=== PATIENT | female | born 2000 | race Caucasian/White ===

== ENCOUNTER 2021-10-28 11:19 | Outpatient (CLI) | payer BC ==
[2021-10-28 12:59] VITALS: BP 127/78; PULSE 110; RESP 16; TEMP 97.2
--- NOTE | 2021-12-22 21:54 | P.MSEPDOC ---
Presenting Problems - Arrival Data Date of Arrival on Unit: 10/28/21 Time of Arrival on Unit: 11:19 Mode of Transport: Ambulatory - Complaint OB-Reason for Admission/Chief Complaint: Possible Onset of Labor Comment: Contrx since 199 Medical History - Information : 1 Para: 0 - Gestational Age Gestational Age by RAJAT (wks/days): 39 Weeks and 5 Days Review of Systems - Review of Systems Constitutional: No problems Breast: No problems ENT: No problems Cardiovascular: No problems Respiratory: No problems Gastrointestinal: No problems Genitourinary: No problems Musculoskeletal: No problems Neurological: No problems Skin: No problems Vital Signs - Temperature Temperature: 97.2 F Temperature Source: Temporal Artery Scan - Pulse Right Sitting Brachial Pulse Rate: 110 Pulse Assessment Method: Automatic Cuff - Respirations Respiratory Rate: 16 Oxygen Delivery Method: Room Air O2 Sat by Pulse Oximetry: 99 - Blood Pressure Right Arm Sitting Blood Pressure: 127/78 Blood Pressure Mean: 94 Blood Pressure Source: Automatic Cuff Medical Screen Scoring - Cervical Exam Dilation (cm): 1 Effacement (%): 90 Station: -2 Membranes: Intact - Uterine Contractions Frequency From (mins): 1 Frequency To (mins): 5 Duration From (seconds): 40 Duration To (seconds): 60 Intensity: Moderate Resting: Soft to palpation - Assessment - Baby A Baseline FHR: 130 Heart Rate - NICHD Category: Category I (Normal) NST: Reactive Physician Notification - Physician Notified Physician Notified Date: 10/28/21 Physician Notified Time: 12:45 Physician: Kira Santos New Order Received: Yes - Notification Comment Comment: Spk c\Dr. Santos, advsd , 39 57, contrx since 199, /-2, posterior. No. change after 1 hr. Contrx q1-5min. Reactive NST. Pt requesting discharge and return when. contractions are more intense. Dr. Santos states pt may be d/c c\instructions. Maternal Triage Index - Maternal Triage Index Presenting for scheduled procedure w/no complaint: No - Stat/Priority 1 Stat Priority 1: No - Urgent/Priority 2 Urgent Priority 2: No - Prompt/Priority 3 Prompt Priority 3: No - Non-Urgent/Priority 4 Non-Urgent Priority 4: Yes Criteria Met for Priority 4: Early labor Disposition - Disposition OB Disposition: Discharge to home, Written follow up instructions reviewed Discharge Date: 10/28/21 Discharge Time: 12:55 I agree with the RN Medical Screening Exam: Yes Case reviewed; plan agreed upon as documented in EMR&OBIX.: Yes Diagnosis: FALSE LABOR AT OR AFTER 37 COMPLETED WEEKS OF GESTATION
== END 2021-10-28 12:55 | disposition home or self-care (01) ==
LOC: FBPOP 11:19
PROVIDERS: ATTEND Obstetrics & Gynecology Obstetrics
DX: O47.1 False labor at or after 37 completed weeks of gestation (principal); Z3A.39 39 weeks gestation of pregnancy
CPT/HCPCS: 59025; 99213

== ENCOUNTER 2021-10-29 06:49 | Outpatient (CLI) | payer BC ==
[2021-10-29 07:55] VITALS: BP 122/83; PULSE 86; RESP 16; TEMP 97.2
--- NOTE | 2021-12-22 21:55 | P.MSEPDOC ---
Presenting Problems - Arrival Data Date of Arrival on Unit: 10/29/21 Time of Arrival on Unit: 06:45 Mode of Transport: Ambulatory - Complaint OB-Reason for Admission/Chief Complaint: Rule Out SROM Medical History - Information : 1 Para: 0 Term: 0 : 0 Abortions: Spontaneous or Elective: 0 Number of Living Children: 0 - Gestational Age Gestational Age by RAJAT (wks/days): 39 Weeks and 6 Days Review of Systems - Review of Systems Constitutional: No problems Breast: No problems ENT: No problems Cardiovascular: No problems Respiratory: No problems Gastrointestinal: No problems Genitourinary: No problems Musculoskeletal: No problems Neurological: No problems Skin: No problems Vital Signs - Temperature Temperature: 97.2 F Temperature Source: Temporal Artery Scan - Pulse Right Apical Pulse Rate: 86 Pulse Assessment Method: Automatic Cuff - Respirations Respiratory Rate: 16 Oxygen Delivery Method: Room Air - Blood Pressure Right Arm Blood Pressure: 122/83 Blood Pressure Mean: 96 Blood Pressure Source: Automatic Cuff Medical Screen Scoring - Cervical Exam Dilation (cm): 1 Effacement (%): 90 Station: -2 Membranes: Intact - Uterine Contractions Intensity: Mild Resting: Soft to palpation - Assessment - Baby A Baseline FHR: 120 Heart Rate - NICHD Category: Category I (Normal) Physician Notification - Physician Notified Physician Notified Date: 10/29/21 Physician Notified Time: 07:40 Physician: Kira Santos New Order Received: Yes - Notification Comment Comment: home with instryctions Maternal Triage Index - Scheduled/Requesting Priority 5 Scheduled/Requesting Priority 5: Yes Criteria Met for Priority 5: contx every 10 minutes. neg amnisure. 1cm dilated Disposition - Disposition OB Disposition: Discharge to home, Written follow up instructions reviewed Discharge Date: 10/29/21 Discharge Time: 07:40 I agree with the RN Medical Screening Exam: Yes Case reviewed; plan agreed upon as documented in EMR&OBIX.: Yes Diagnosis: FALSE LABOR AT OR AFTER 37 COMPLETED WEEKS OF GESTATION
== END 2021-10-29 07:40 | disposition home or self-care (01) ==
LOC: FBPOP 06:49
PROVIDERS: ATTEND Obstetrics & Gynecology Obstetrics
DX: O47.1 False labor at or after 37 completed weeks of gestation (principal); Z3A.39 39 weeks gestation of pregnancy
CPT/HCPCS: 59025; 99213

== ENCOUNTER 2021-10-31 09:29 | Inpatient (IN) | payer BC ==
--- NOTE | 2021-10-31 10:22 | P.HPOB ---
History of Present Illness H&P Date: 10/31/21 Chief Complaint: Strong regular uterine contractions This is a 21-year-old white female 1 para 0 EDC 219 2240 and one sevenths weeks' gestation. Patient presents with complaint of strong regular uterine contractions. Fetus is been active throughout the . She denies vaginal bleeding or fluid leakage. Past medical history is negative. Past surgical history adenoidectomy and tonsillectomy in the first grade. Current medications vitamins daily. ALLERGIES none known. Family history significant for diabetes. Social history patient is single, father of the baby is involved. 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 history significant for blood type B positive, rubella status immune. VDRL testing, urine culture, hepatitis B surface antigen, HIV testing, gonorrhea and chlamydia cultures all negative. Positive group B strep cultures noted. On exam patient is 5 foot 5 inches, 150 pounds, vital signs are stable and she is afebrile. The general physical exam is within normal limits. Cervix is 6 cm dilated, 100% effaced, -2 station, vertex presentation. heart rate is consistent with reactive NST. Impression: 40 and one sevenths weeks intrauterine , early spontaneous labor. Positive group B strep cultures noted. Plan: Penicillin G prophylaxis per protocol. Close maternal and surveillance. I will proceed with artificial amniorrhexis. Analgesic options have been reviewed. Anticipate normal spontaneous vaginal delivery. Review of Systems Constitutional: Reports as per HPI Past Medical History Past Medical History: No Reported History History of Any Multi-Drug Resistant Organisms: None Reported Past Surgical History: Tonsillectomy Past Psychological History: No Psychological Hx Reported Smoking Status: Never smoker Past Alcohol Use History: Unable to Obtain Past Drug Use History: None Reported - Past Family History Mother History Unknown: Yes Medications and Allergies Home Medications Medication Instructions Recorded Confirmed Type Pnv No.95/Ferrous Fum/Folic AC 1 each PO DAILY 10/29/21 10/31/21 History [ Multivitamin Tablet] Allergies Allergy/AdvReac Type Severity Reaction Status Date / Time No Known Allergies Allergy Verified 10/29/21 06:57 Exam Vital Signs Temp Pulse Resp BP Pulse Ox 10/31/21 09:49 97.5 F L 78 18 131/80 100 Intake and Output 10/30/21 10/31/21 10/31/21 22:59 06:59 14:59 Other: Weight 74.843 kg See dictation under HPI please Assessment and Plan Assessment: 40 and one sevenths weeks intrauterine , active spontaneous labor. All signs reassuring. Positive group B strep cultures noted. Plan: Close maternal and surveillance. Penicillin G per hospital protocol. Analgesic options reviewed. Oxytocin if indicated clinically. Anticipate normal spontaneous vaginal delivery. Time with Patient: Less than 30
[2021-10-31] MEDS ORDERED: CARBOPROST TROMETHAMINE 250 MCG/ML 1 ML AMP IM PRN (10:24)
[2021-10-31] MEDS ORDERED: LIDOCAINE 1% (PF) 10 MG/ML (30 ML SDV) SQ PRN (10:24)
[2021-10-31] MEDS ORDERED: OXYTOCIN 10 UNIT/ML 1 ML VIAL IM PRN (10:24)
[2021-10-31] MEDS ORDERED: PENICILLIN G POTASSIUM 5,000,000 UNIT in DEXTROSE 5% IN WATER 100 ML IVPB STA ×2 (10:24)
[2021-10-31] MEDS ORDERED: TERBUTALINE 1 MG/ML VIAL SQ PRN (10:24)
[2021-10-31] MEDS ORDERED: METHYLERGONOVINE 0.2 MG/ML 1 ML AMP IM PRN (10:24)
[2021-10-31 10:36] LABS: Basophils % (A) 0 %; Eosinophils # (A) 0.1 k/uL (0-0.7); Eosinophils % (A) 1 %; HCT 34.9 % (34.0-46.0); HGB 11.6 gm/dL (11.4-16.0); Lymphocytes # (A) 1.6 k/uL (1.0-4.8); Lymphocytes % (A) 16 %; MCH 27.9 pg (25.0-35.0); MCHC 33.3 g/dL (31.0-37.0); MCV 83.6 fL (80.0-100.0); Mean Platelet Volume 7.6; Monocytes # (A) 0.5 k/uL (0-1.0); Monocytes % (A) 5 %; Neutrophils # (A) 7.8 k/uL (1.3-7.7); Neutrophils % (A) 77 %; Platelet Count 277 k/uL (150-450); RBC 4.17 m/uL (3.80-5.40); RDW 13.5 % (11.5-15.5); WBC 10.1 k/uL (3.8-10.6)
[2021-10-31] MEDS: LACTATED RINGERS 1,000 ML IV SCH ×2 (10:44→11:21)
[2021-10-31] MEDS ORDERED: fentaNYL (PF) 50 MCG/ML 5 ML AMP ONE (10:58)
[2021-10-31] MEDS ORDERED: SODIUM CHLORIDE 0.9% 100 ML BAG ONE (10:58)
[2021-10-31] MEDS ORDERED: ROPIVACAINE 5MG/ML 20ML VIAL ONE (10:58)
[2021-10-31] MEDS: OXYTOCIN 30 UNITS/500 ML NS 30 UNIT in SALINE 1 500ML.BAG IV SCH ×2 (11:47→15:30)
[2021-10-31] MEDS ORDERED: PENICILLIN G POTASSIUM 2,500,000 UNIT in DEXTROSE 5% IN WATER 100 ML IVPB SCH ×2 (15:00)
[2021-10-31] MEDS ORDERED: diphenhydrAMINE 50 MG CAP PO PRN (15:19)
[2021-10-31] MEDS ORDERED: LANOLIN CREAM 5 GM TUBE TOPICAL PRN (15:19)
[2021-10-31] MEDS ORDERED: diphenhydrAMINE ELIXIR 25 MG/10 ML CUP PO PRN (15:19)
[2021-10-31] MEDS ORDERED: HYDROCORTISONE 2.5% RECTAL CREAM 30 GM TUBE RECTAL PRN (15:19)
[2021-10-31] MEDS ORDERED: diphenhydrAMINE 50 MG/ML 1 ML VIAL IVP PRN ×2 (15:19)
[2021-10-31] MEDS ORDERED: BENZOCAINE/MENTHOL SPRAY 1 GM/SPRAY AEROSOL TOPICAL PRN (15:19)
[2021-10-31] MEDS ORDERED: diphenhydrAMINE 25 MG CAP PO PRN (15:19)
[2021-10-31] MEDS ORDERED: ZOLPIDEM 5 MG TAB PO PRN (15:19)
[2021-10-31] MEDS ORDERED: SIMETHICONE 80 MG CHEWABLE PO PRN (15:19)
--- NOTE | 2021-10-31 15:20 | P.PROBDLV ---
Vaginal Delivery Note - . Vaginal Delivery Note: This is a 21-year-old white female 1 para 0 EDC 10/30/2021 at 40 and one sevenths weeks' gestation who presented in active spontaneous labor. remarkable for positive group B strep cultures, rubella status immune, blood type B positive. Please see dictated history and physical for details. Artificial amniorrhexis revealed clear fluid. Penicillin G was given 2 units per protocol. Oxytocin augmentation was started and titrated. Epidural was arthur sabrina per her request. She progressed through the first stage of labor and became completely dilated at 1414 hrs. and began the second stage of labor at that time. Excellent maternal expulsive efforts were noted. Ultimately the perineal body was prepped and draped in usual sterile fashion. Infant's head delivered occiput anterior and he restituted accordingly. There was no nuchal cord noted. The left or anterior shoulder was delivered from underneath the pubic symphysis at which time the oropharynx, nasopharynx and external nares were all bulb suctioned on the perineal body. Patient was officially delivered of a liveborn female at 1505 hrs. Umbilical cord was doubly clamped and ligated, she was handed to waiting nurses for evaluation where scores of 9 and 9 at one and 5 minutes respectively were given. The placenta delivered spontaneously, it was inspected and noted to be intact with trivascular cord at 1508 hrs. At this time uterus is massaged. Careful inspection of the cervix, vagina, perineum, periurethral, and perirectal areas revealed a small first-degree laceration easily repaired with a single [id number] suture of 3-0 repeat. Infant's weight 7 lbs. 12 oz. or 3510 g. Total estimated blood loss 250 mL's. All sponge needle and enhancement counts are correct. Patient is allowed to begin the bonding experience.
[2021-10-31] MEDS: IBUPROFEN 600 MG TAB PO SCH (15:29)
[2021-10-31] MEDS: ACETAMINOPHEN TAB 325 MG TAB PO PRN (17:25)
[2021-10-31] MEDS: SENNOSIDES-DOCUSATE SODIUM 1 EACH TAB PO SCH (20:31)
[2021-11-01] MEDS: IBUPROFEN 600 MG TAB PO SCH ×3 (00:04→16:57)
[2021-11-01] MEDS: ACETAMINOPHEN TAB 325 MG TAB PO PRN ×2 (03:46→12:44)
[2021-11-01] MEDS: SENNOSIDES-DOCUSATE SODIUM 1 EACH TAB PO SCH (07:57)
--- NOTE | 2021-11-01 08:05 | P.DS ---
Providers Date of admission: 10/31/21 09:46 Expected date of discharge: 11/01/21 Attending physician: Kira Santos Primary care physician: Stated None Hospital Course: This is a 21-year-old white female 1 para 0 EDC 10/30/2021 who presented at 40 and one sevenths weeks in active spontaneous labor from home. Fetus is been active throughout the . is essentially unremarkable, group B strep cultures positive, rubella status immune. Blood type A+. Please see my dictated history and physical for details. This morning the patient is doing well. She is voiding, ambulating, passing flatus without difficulty. Vital signs are stable and she is afebrile. Fundus is firm and in the midline, symmetric and 18 week size. Extremities are negative for edema. is doing well. Patient is judged to be in very good condition for discharge home. She will follow-up in the office with Dr. Santos in 4 weeks. She is reminded no tampons, intercourse or douching. She will use [id number] Advil or Aleve, or Motrin as needed for pain. She will call with any fevers shakes or chills, foul smelling or copious lochia, with the passage of large blood clots, or indeed with any difficulties or concerns. infant will follow-up with occupational health professional as recommended. We have briefly discussed options for contraception and she will discuss this further in the office. Assessment: Doing well day #1 Patient Condition at Discharge: Good Plan - Discharge Summary Discharge Rx Participant: No New Discharge Prescriptions: No Action Pnv No.95/Ferrous Fum/Folic AC [ Multivitamin Tablet] 1 each PO DAILY Discharge Medication List Pnv No.95/Ferrous Fum/Folic AC [ Multivitamin Tablet] 1 each PO DAILY 10/29/21 [History] Follow up Appointment(s)/Referral(s): Kira Santos DO [Doctor of Osteopathic Medicine] - 4 Weeks Discharge Disposition: HOME SELF-CARE
[2021-11-01 08:47] VITALS: RESP 16
[2021-11-01 15:52] VITALS: BP 114/64; PULSE 87; TEMP 97.9
== END 2021-11-01 17:39 | disposition home or self-care (01) | DRG 807 ==
LOC: FBPOP 09:29 → 4FBP 09:46
PROVIDERS: ADMIT Obstetrics & Gynecology; ATTEND Obstetrics & Gynecology Obstetrics
PROC: 10E0XZZ Delivery of Products of Conception, External Approach (ICD-10-PCS; principal; 2021-10-31)
PROC: 0HQ9XZZ Repair Perineum Skin, External Approach (ICD-10-PCS; 2021-10-31)
PROC: 00HU33Z Insertion of Infusion Device into Spinal Canal, Percutaneous Approach (ICD-10-PCS; 2021-10-31)
PROC: 3E0R3NZ Introduction of Analgesics, Hypnotics, Sedatives into Spinal Canal, Percutaneous Approach (ICD-10-PCS; 2021-10-31)
PROC: 10907ZC Drainage of Amniotic Fluid, Therapeutic from Products of Conception, Via Natural or Artificial Opening (ICD-10-PCS; 2021-10-31)
DX: O48.0 Post-term pregnancy (principal); Z37.0 Single live birth; O70.0 First degree perineal laceration during delivery; Z3A.40 40 weeks gestation of pregnancy; Z83.3 Family history of diabetes mellitus; O99.824 Streptococcus B carrier state complicating childbirth
CPT/HCPCS: 85025; 86850; 86900; 86901